=== PATIENT | female | born 1995 | race Caucasian/White ===

== ENCOUNTER 2016-10-30 08:56 | Emergency (ER) | payer BC ==
[2016-10-30 09:15] LABS: Urine Bilirubin Negative (NEGATIVE); Urine Blood Negative /ul (NEGATIVE); Urine Ketone Negative (NEGATIVE); Urine Nitrite Negative (NEGATIVE); Urine Protein Negative (NEGATIVE); Urine Urobilinogen Normal (NORMAL); Urine pH 6.5 pH (5.0-7.0)
[2016-10-30 09:20] LABS: Hematocrit 42.3 % (37.0-47.0); Hemoglobin 14.2 gm/dL (12.5-16.0); Mean Cell Volume 90.4 fl (78-100); Mean Corpuscular Hemoglobin 30.3 pg (27-31); Mean Corpuscular Hgb Conc 33.6 g/dl (32-36); Neutrophil % 56.5 % (42-75.0); Platelet Count 273 K/mm3 (150-450); Red Blood Count 4.68 M/mm3 (4.2-5.4); Red Cell Distribution Width 11.9 % (11.5-14.0); White Blood Count 7.1 K/mm3 (4.0-10.5)
[2016-10-30 09:25] LABS: Urine Appearance Slightly Cloudy; Urine Bacteria 1+; Urine Color Yellow; Urine RBC None Seen /hpf (0-5); Urine WBC 0-5 /hpf (0-5)
[2016-10-30 09:39] LABS: Albumin * 4.1 gm/dl (3.4-5.0); Anion Gap 12.9 mmol/L (6.8-13.8); BUN/Creatinine Ratio 21.3 (9.0-21.6); Bilirubin, Total 0.4 mg/dL (0.0-1.1); Ca. Corrected For Albumin 8.6 mg/dL (8.4-10.2); Potassium 3.9 mmol/L (3.4-4.6); Total Protein 7.6 gm/dL (6.2-8.2)
--- OUTSIDE RECORDS SUMMARY | 2016-10-30 09:43 | XMS REPORT | Continuity of Care Document ---
:1995 Author Organization [facility] ([facility]) Address [address] [place] [address] Phone [phone] Care Team Providers Name Role Phone Unavailable Primary Care Provider Unavailable Source Comments This disclosure is being made pursuant to the Care Everywhere program, applicable federal and state laws, and may not contain all informaitonavailable regarding this patient.[facility] ([facility]) Active Allergies and Adverse Reactions Allergen Noted Date Severity Reactions Comments Penicillins Urticaria (Hives) Current Medications Not on file Active Problems Not on file Social History Tobacco Use Types Packs/Day Years Used Date Never Assessed Last Filed Vital Signs Vital Sign Reading Time Taken Blood Pressure 108/68 11/07/2003 8:30 AM CDT Pulse 90 11/07/2003 8:30 AM CDT Temperature 36.1 C (96.98 F) 11/07/2003 8:30 AM CDT Respiratory Rate 20 11/07/2003 8:30 AM CDT Height 1.405 m (4' 7.31") 11/07/2003 8:30 AM CDT Weight 34.596 kg (76 lb 4.3 oz) 11/07/2003 8:30 AM CDT Body Mass Index 17.53 11/07/2003 8:30 AM CDT Oxygen Saturation - - Plan of Care Health Maintenance Due Date Last Done Comments Hepatitis B Vaccine (1 of 3 - Primary Series) 1993 HPV Vaccine (1 of 3 - Female/Unknown 3 Dose Series) 01/02/2004 Tdap Vaccine 01/02/2004 Cervical Cancer Screening 2011 Lipid Disorder Screening 2011 MMR Vaccine 2011 Td Vaccine 2011 Varicella Vaccine (1 of 2 - Adult - No Evidence of 2011 Immunity) Influenza Vaccine: Seasonal (#1) 02/25/2016 Results from Last 3 Months Not on file
[2016-10-30] MEDS ORDERED: ONDANSETRON HCL/PF 2 MG/ML VIAL IV ONE (09:49)
[2016-10-30] MEDS ORDERED: KETOROLAC TROMETHAMINE 30 MG/ML VIAL IV ONE (09:49)
[2016-10-30] MEDS ORDERED: DIATRIZOATE MEGLU/DIATRIZO SOD 30 ML BTL PO ONE (09:49)
--- NOTE | 2016-10-30 09:51 | ERNOTE ---
Abdominal HPI - General Chief Complaint: Abdominal Pain Time Seen by Provider: 10/30/16 09:35 Source: patient Exam Limitations: no limitations - Immun/Allergies/Home Medications Immunizatons: IMMUNIZATION HX Immunizations Up to Date No History of Influenza Vaccine No Hx Pneumococcal Vaccination No Allergies/Adverse Reactions: Allergies Penicillins Allergy (Verified 10/30/16 09:07) Home Medications: HOME MEDICATIONS NK [No Home Medication] 10/30/16 [Last Taken Unknown] - History of Present Illness Narrative: Patient noticed right lower abdominal pain yesterday about an hour after waking up, the pain was mild and intermittent, but she was not able to work out at the gym due to pain. At 23:00 she got up to go to the bathroom and while urinating the pain got severe and she got very nauseated. The pain continued to be severe till about 03:30, is better now but has not resolved, she is still nauseated, no vomiting, normal BM this morning Patient has had an IUD placed in July, no period since, is sexually active with the same partner Date (Duration): 10/29/16 Time (Timing): 07:00 Timing: constant Modifying Factors - (Worsens): Present: lying down, movement Review of Systems - Review of Systems Constitutional: Absent: recent illness, fever EYE: Absent: vision changes ENT: Absent: nose congestion, sore throat Cardiology: Absent: chest pain, palpitations Gastrointestinal/Abdominal: Present: See HPI, nausea. Absent: vomiting, diarrhea, constipation Genitourinary: Present: no symptoms reported. Absent: frequency, pain, dysuria Musculoskeletal: Absent: back pain Neurological: Absent: weakness, numbness - Patient's Past Medical History Patient History - Medical: No pertinent hx Patient History - Cardiac/Respiratory: No pertinent hx Patient History - Cancer: No Hx of Cancer Patient History - Surgical Procedures: No surgical history Patient History - Other: None LMP (females 10-50): IUD in [place] LMP (Calendar): 06/20/15 - Social History Living Situations: home Abuse History: No History of abuse Psych History: No pertinent hx Smoking Status: Never smoker Alcohol Use: none Drug Use: none - Immunizations Immunizations Up to Date: No Hx Pneumococcal Vaccination: No History of Influenza Vaccine: No Physical Exam - Physical Exam General Appearance: Present: wd/wn, alert, no apparent distress Eye Exam: Normal inspection: bilateral Ears, Nose, Throat: Present: normal pharynx Respiratory: Present: no respiratory distress, normal breath sounds, no accessory muscle use, lungs clear Cardiovascular/Chest: Present: regular rate, rhythm, no murmur Gastrointestinal/Abdominal: Present: normal bowel sounds, nondistended, soft, tenderness - right lower quadrant and suprapubic, Psoas sign - mild. Absent: guarding, rebound, Obturator sign Back Exam: Present: no CVA tenderness Neurological Exam: Present: alert, oriented, normal mood/affect Skin Exam: Present: normal color, warm/dry ED Progress - Results and Orders Patient's Lab Results:: I have reviewed the patient's lab results. - Vital Signs Patient's Vital Signs:: I have reviewed the patient's vital signs. Vital Signs: Vital Signs 10/30/16 08:59 Temperature 36.8 C Pulse Rate 88 Respiratory 16 Rate Blood Pressure 124/81 O2 Sat by Pulse 100 Oximetry - X-Ray X-Ray #1 X-Ray: abdomen - stool retention, normal gas pattern, inverted IUD Interpretation: Reviewed by me - CT/Ultrasound CT/Ultrasound Narrative: U/S: no torsion, IUD in appropriate location, complex right ovarian cyst, small amount of free fluid - Progress/Reassessment Chief Complaint: Abdominal Pain Progress Note-Subjective: 10/30/16 11:50 discussed test results and diagnosis of ovarian cyst, discussed that appendicitis is not completely ruled out without CT but less likely with alternate diagnosis explaining results. Patient does not want CT at this time. Discussed need for follow up ultrasound Departure - Departure Clinical Impression: Ovarian cyst Qualifiers: Laterality: right Qualified Code(s): N83.201 - Unspecified ovarian cyst, right side Disposition: Home self-care Condition: Good Instructions: Ovarian Cyst, [id number], Form - Excuse from Work, School, or Physical Activity Additional Instructions: take over the counter ibuprofen (200mg) three tablets every six hours as needed for pain call Dr Ricci for follow up, you should have a repeat ultrasound in six weeks to make sure the cyst has resolved Referrals: Helen Ricci DO [Staff Physician] -
[2016-10-30] MEDS ORDERED: DIATRIZOATE MEGLU/DIATRIZO SOD 30 ML BTL ONE (09:59)
[2016-10-30] MEDS ORDERED: KETOROLAC TROMETHAMINE 30 MG/ML VIAL ONE (09:59)
[2016-10-30] MEDS ORDERED: ONDANSETRON HCL/PF 2 MG/ML VIAL ONE (09:59)
[2016-10-30 11:23] VITALS: BP 100/64
== END 2016-10-30 12:03 | disposition home or self-care (01) ==
LOC: ER 08:56
DX: N83.201 Unspecified ovarian cyst, right side (principal)